=== PATIENT | male | born 1940 | race Caucasian/White ===

== ENCOUNTER 2019-12-01 19:33 | Inpatient (IN) | payer MEDICARE ==
--- NOTE | 2019-12-01 20:09 | ED ---
General Adult HPI - General Chief complaint: Upper Respiratory Infection Stated complaint: coughing up blood Time Seen by Provider: 12/01/19 19:40 Source: patient, EMS Mode of arrival: EMS Limitations: no limitations - History of Present Illness Initial comments: The patient is a 79-year-old male with past medical history of COPD and hyperlipidemia who presents to the emergency department as a transfer for [facility]. He went into their facility after he had coughed up blood at home. States he has no history of similar in the past. He did cough up to quarter size amounts of bright red blood. Evaluation of [facility] demonstrated normal vital signs and a stable hemoglobin. He continued to cough up in total approximately 200 mL of blood and therefore they did recommend transfer to a facility with pulmonology on staff. Patient denies been on any blood thinners. No chest pain or shortness of breath. No lower external swelli ng. Denies a ripping return station his back. Denies epistaxis. No history of blood clotting disorders. Denies fevers or chills. No sputum production. Denies history of tuberculosis or PE. There are no other alleviating, precipitating or modifying factors - Related Data Home Medications Medication Instructions Recorded Confirmed Pravastatin Sodium [Pravachol] 40 mg PO HS 12/02/19 12/04/19 Previous Rx's Medication Instructions Recorded predniSONE [Deltasone] 60 mg PO DAILY #15 tab 12/03/19 Allergies Allergy/AdvReac Type Severity Reaction Status Date / Time No Known Allergies Allergy Verified 12/04/19 10:54 Review of Systems ROS Statement: Those systems with pertinent positive or pertinent negative responses have been documented in the HPI. ROS Other: All systems not noted in ROS Statement are negative. Past Medical History Past Medical History: COPD, Hyperlipidemia History of Any Multi-Drug Resistant Organisms: None Reported Past Surgical History: Joint Replacement, Orthopedic Surgery Additional Past Surgical History / Comment(s): shoulder surgery, back surgery Past Psychological History: No Psychological Hx Reported Smoking Status: Current every day smoker Past Alcohol Use History: Occasional Past Drug Use History: None Reported - Past Family History family Family Medical History: No Reported History General Exam Limitations: no limitations General appearance: alert, in no apparent distress Head exam: Present: atraumatic, normocephalic, normal inspection Eye exam: Present: normal appearance, PERRL, EOMI. Absent: scleral icterus, conjunctival injection, periorbital swelling ENT exam: Present: normal exam, mucous membranes moist Neck exam: Present: normal inspection. Absent: tenderness, meningismus, lymphadenopathy Respiratory exam: Present: normal lung sounds bilaterally. Absent: respiratory distress, wheezes, rales, rhonchi, stridor Cardiovascular Exam: Present: regular rate, normal rhythm, normal heart sounds. Absent: systolic murmur, diastolic murmur, rubs, gallop, clicks GI/Abdominal exam: Present: soft, normal bowel sounds. Absent: distended, tenderness, guarding, rebound, rigid Extremities exam: Present: normal inspection, full ROM, normal capillary refill. Absent: tenderness, pedal edema, joint swelling, calf tenderness Back exam: Present: normal inspection Neurological exam: Present: alert, oriented X3, CN II-XII intact Psychiatric exam: Present: normal affect, normal mood Skin exam: Present: warm, dry, intact, normal color. Absent: rash Course Vital Signs 12/01/19 12/01/19 12/01/19 19:35 20:32 20:45 Temperature 97.4 F L 97.8 F Pulse Rate 72 75 Respiratory 19 20 20 Rate Blood Pressure 140/87 137/88 O2 Sat by Pulse 97 98 Oximetry 12/01/19 21:46 Temperature 98.0 F Pulse Rate 81 Respiratory 16 Rate Blood Pressure 139/89 O2 Sat by Pulse 98 Oximetry EKG Findings - EKG Comments: EKG Findings:: EKG demonstrates a normal sinus rhythm with a ventricular rate of 67. RI interval 166. QRS 76. QTC 443. No acute ST segment elevations or depressions concerning for ischemic changes. Baseline artifact. Medical Decision Making - Medical Decision Making Upon arrival the patient was placed into room 3. A thorough history and physical exam is performed. I did repeat a CBC. hb stable at 17.1. Vitals re mained stable as well. Patient does arrive with an emesis container that only has approximate 5 mL of bright red blood in it. Visualization of the patient's nose and mouth demonstrates no active bleeding. I did recommend admission for pulmonology evaluation for which the patient did agree. I discussed case with Dr. Lutz who accepted admission. Patient was then transferred to the floor in stable condition - Lab Data Result diagrams: 12/03/19 05:43 12/02/19 05:42 Lab Results 12/01/19 Range/Units 20:16 WBC 8.4 (3.8-10.6) k/uL RBC 5.35 (4.30-5.90) m/uL Hgb 17.1 (13.0-17.5) gm/dL Hct 50.3 (39.0-53.0) % MCV 94.0 (80.0-100.0) fL MCH 31.9 (25.0-35.0) pg MCHC 33.9 (31.0-37.0) g/dL RDW 13.5 (11.5-15.5) % Plt Count 237 (150-450) k/uL Neutrophils % 62 % Lymphocytes % 27 % Monocytes % 6 % Eosinophils % 4 % Basophils % 1 % Neutrophils # 5.2 (1.3-7.7) k/uL Lymphocytes # 2.3 (1.0-4.8) k/uL Monocytes # 0.5 (0-1.0) k/uL Eosinophils # 0.3 (0-0.7) k/uL Basophils # 0.1 (0-0.2) k/uL Disposition Clinical Impression: Hemoptysis Disposition: ADMITTED IP TO THIS [facility] Condition: Stable Is patient prescribed a controlled substance at d/c from ED?: No Decision to Admit Reason: Admit from EC Decision Date: 12/01/19 Decision Time: 20:09
[2019-12-01] MEDS ORDERED: NALOXONE 0.4 MG/ML 1 ML VIAL IV PRN (20:23)
[2019-12-01 20:30] LABS: Basophils # (A) 0.1 k/uL (0-0.2); Basophils % (A) 1 %; Eosinophils # (A) 0.3 k/uL (0-0.7); Eosinophils % (A) 4 %; HCT 50.3 % (39.0-53.0); HGB 17.1 gm/dL (13.0-17.5); Lymphocytes # (A) 2.3 k/uL (1.0-4.8); Lymphocytes % (A) 27 %; MCH 31.9 pg (25.0-35.0); MCHC 33.9 g/dL (31.0-37.0); Mean Platelet Volume 9.1; Monocytes # (A) 0.5 k/uL (0-1.0); Monocytes % (A) 6 %; Neutrophils # (A) 5.2 k/uL (1.3-7.7); Neutrophils % (A) 62 %; Platelet Count 237 k/uL (150-450); RBC 5.35 m/uL (4.30-5.90); RDW 13.5 % (11.5-15.5); WBC 8.4 k/uL (3.8-10.6)
[2019-12-01] MEDS: SODIUM CHLORIDE 0.9% 1,000 ML IV SCH (21:37)
[2019-12-02] MEDS ORDERED: IPRATROPIUM-ALBUTEROL 3 ML NEB INHALATION PRN (00:29)
--- NOTE | 2019-12-02 00:40 | P.HPIM ---
History of Present Illness H&P Date: 12/01/19 Chief Complaint: hemoptysis 79 year old male with COPD not on home oxygen patient reports sudden onset of hemoptysis large amount . he reports chronic cough at baseline. he is active smoker, denies any weight loss. denies any fever, chills, chest pain , or SOB. he denies any recent travel or sick contact. denies being on any blood thinners, except for aspirin . denies any GI bleed or epistaxis. denies abd pain , nausea or vomiting denies any history of DVT or bleeding . he got concerned , and went to the ED, CTA done showed no masses or PE patient reports that hhis COPD is stable and he uses an inhaler twice a week as needed. no home oxygen . no contact with anyone with chronic cough , denies any history of TB patient was transferred to our facility from [place] for pulmonary evaluation Review of Systems Pertinent positives as noted in HPI. All other systems were reviewed and are negative Past Medical History Past Medical History: No Reported History, COPD, Hyperlipidemia History of Any Multi-Drug Resistant Organisms: None Reported Past Surgical History: Joint Replacement, Orthopedic Surgery Additional Past Surgical History / Comment(s): shoulder surgery, back surgery Additional Past Anesthesia/Blood Transfusion Reaction / Comment(s): No history Past Psychological History: No Psychological Hx Reported Smoking Status: Current every day smoker Past Alcohol Use History: Occasional Past Drug Use History: None Reported - Past Family History family Family Medical History: No Reported History Medications and Allergies Home Medications Medication Instructions Recorded Confirmed Type Aspirin EC [Ecotrin Low Dose] 81 mg PO HS 12/01/19 12/01/19 History Unknown Cholesterol Medication 1 tab PO 12/01/19 12/01/19 History Allergies Allergy/AdvReac Type Severity Reaction Status Date / Time No Known Allergies Allergy Verified 12/01/19 20:57 Physical Exam Vitals: Vital Signs Temp Pulse Pulse Resp BP BP Pulse Ox 12/01/19 23:09 97.7 F 70 18 168/77 96 12/01/19 22:01 97.7 F 70 19 168/77 96 12/01/19 21:46 98.0 F 81 16 139/89 98 12/01/19 20:45 97.8 F 75 20 137/88 98 12/01/19 20:32 20 12/01/19 19:35 97.4 F L 72 19 140/87 97 Intake and Output 12/01/19 12/01/19 12/02/19 14:59 22:59 06:59 Other: Voiding Method Toilet Weight 92.986 kg Constitutional: No acute distress, conversant, pleasant Eyes: Anicteric sclerae, moist conjunctiva, no lid-lag Pupils equal round reactive to light ENMT: NC/AT Oropharynx clear, no erythema, or exudates Neck: Supple, FROM, no masses, or JVD No carotid bruits No thyromegaly Lungs: Clear to auscultation Clear to percussion Normal respiratory effort, no accessory muscle use Cardiovascular: Heart regular in rate and rhythm, No murmurs, gallops, or rubs No peripheral edema Abdominal: Soft Nontender, no guarding, rebound or rigidity Abdomen moving with respiration Normoactive bowel sounds No hepatomegaly, No splenomegaly No palpable mass No abdominal wall hernia noted Skin: Normal temperature, tone, texture, turgor No induration No subcutaneous nodules No rash, lesions No ulcers Extremities: No digital cyanosis No clubbing Pedal pulses intact and symmetrical Radial pulses intact and symmetrical No calf tenderness Psychiatric: Alert and oriented to person, place and time Appropriate affect fair judgement Neuro Muscles Strength 5/5 in all 4 extremities Sensation to light touch grossly present throughout Cranial nerves II-XII grossly intact No focal sensory deficits Lymphatics: no palpable cervical or supraclavicular , or inguinal lymph nodes Results CBC & Chem 7: 12/01/19 20:16 Thrombosis Risk Factor Assmnt - Choose All That Apply Any of the Below Risk Factors Present?: Yes Each Factor Represents 1 point: Abnormal pulmonary function (COPD) Each Risk Factor Represents 3 Points: Age 75 years or older Other congenital or acquired thrombophilia - If yes, enter type in comment: No Thrombosis Risk Factor Assessment Total Risk Factor Score: 4 Thrombosis Risk Factor Assessment Level: Moderate Risk Assessment and Plan Assessment: 79 year old male smoker with copd, comes in due to sudden onset of hemoptysis and coughing hemoptysis rule out cancer, vs acute bronchitis copd compensated and stable plan breathing treatment as needed symptomatic control hemoglobin stable follow up morning labs pulmonary evaluation CTA of the lung , no PE , no masses PT/INR wnl follow up COVID results CODE STATUS:full code DVT prophylaxis: mechanical Discussed with: Patient, ER, RN Anticipated length of stay > than [address]: home A total of 75 minutes was spent on the care of this complex patient more than 50% of the time was spent in counseling and care coordination.
[2019-12-02] MEDS ORDERED: MELATONIN 3 MG TABLET PO SCH (01:00)
[2019-12-02 06:29] LABS: Basophils # (A) 0.1 k/uL (0-0.2); Basophils % (A) 1 %; Eosinophils # (A) 0.3 k/uL (0-0.7); Eosinophils % (A) 5 %; HCT 43.3 % (39.0-53.0); Lymphocytes # (A) 2.4 k/uL (1.0-4.8); Lymphocytes % (A) 34 %; MCH 30.6 pg (25.0-35.0); MCHC 32.3 g/dL (31.0-37.0); MCV 94.6 fL (80.0-100.0); Mean Platelet Volume 9.4; Monocytes # (A) 0.4 k/uL (0-1.0); Monocytes % (A) 6 %; Neutrophils # (A) 3.7 k/uL (1.3-7.7); Neutrophils % (A) 53 %; Platelet Count 218 k/uL (150-450); RBC 4.57 m/uL (4.30-5.90); RDW 13.4 % (11.5-15.5)
[2019-12-02 06:44] LABS: Potassium 4.2 mmol/L (3.5-5.1)
[2019-12-02] MEDS: NICOTINE 21MG/24HR PATCH TRANSDERM SCH (09:40)
[2019-12-02] MEDS: SODIUM CHLORIDE 0.9% 1,000 ML IV SCH ×2 (09:42→23:21)
[2019-12-02] MEDS: IPRATROPIUM-ALBUTEROL 3 ML NEB INHALATION SCH ×4 (10:59→23:20)
[2019-12-02] MEDS: methylPREDNISolone SOD SUCCI 125 MG/2 ML VIAL IV SCH ×3 (12:02→23:15)
--- NOTE | 2019-12-02 12:58 | P.CNPUL ---
History of Present Illness Consult date: 12/02/19 Chief complaint: hemoptysis History of present illness: This is a 79-year-old male patient came into the emergency department as a transfer for evaluation of hemoptysis. The patient states that he was doing well and he was sitting outside and relaxing with his when all of a sudden he started having the urge to cough and he started coughing out bright red blood. The patient stated that this happened around 3-4 times at home and this is the first episode where he ever had hemoptysis. He has never had it before. He denies having any sensation of postnasal drainage. He did not have any epistaxis. He did not have any inhalational injury. He did not have any fever chills or night sweats. No exposure to covid19 infection. He stated that he was having episodes where significant amount of bright red blood was being coughed out and each time he coughed up blood was about the size of a quarter. He is known to be a smoker. He is known to have COPD and continues to smoke cigarettes. He is a retired trailer truck driver. No reported chest pain. No reported trauma. No history of any prolonged immobilization. No previous history of DVT or pulmonary management. The patient underwent a computed tomography scan of the chest that was done and [facility] and the CAT scan showed no evidence of any pulmonary embolism. No evidence of any lung masses. This was consistent with COPD. This morning, the patient is still coughing up some bright red blood mixed with mucus. He was seen by the hospitalist and the patient was given a combination of breathing treatments and steroids. He is sitting up on a chair. He has no specific complaints. No pleurisy. He takes aspirin. No intake of any other antiplatelet agents or anticoagulants. No coagulopathy. No previous history of bleeding. Review of Systems Constitutional: Denies chills, Denies fever Eyes: denies as per HPI, denies blurred vision, denies bulging eye, denies decreased vision, denies diplopia, denies discharge, denies dry eye, denies irritation, denies itching, denies pain, denies photophobia, denies loss of peripheral vision, denies loss of vision, denies tunnel vision/blind spots Ears: deny: decreased hearing, ear discharge, earache, tinnitus Ears, nose, mouth and throat: Denies headache, Denies sore throat Breasts: absent: as per HPI, gynecomastia Cardiovascular: Reports dyspnea on exertion Respiratory: Reports dyspnea, Reports hemoptysis Gastrointestinal: Reports as per HPI Genitourinary: Reports as per HPI Musculoskeletal: Reports as per HPI Musculoskeletal: absent: ankle pain, ankle stiffness, ankle swelling Integumentary: Reports as per HPI Neurological: Reports as per HPI Psychiatric: Reports as per HPI Endocrine: Reports as per HPI Hematologic/Lymphatic: Reports as per HPI Allergic/Immunologic: Reports as per HPI Past Medical History Past Medical History: No Reported History, COPD, Hyperlipidemia History of Any Multi-Drug Resistant Organisms: None Reported Past Surgical History: Joint Replacement, Orthopedic Surgery Additional Past Surgical History / Comment(s): shoulder surgery, back surgery Additional Past Anesthesia/Blood Transfusion Reaction / Comment(s): No history Past Psychological History: No Psychological Hx Reported Smoking Status: Current every day smoker Past Alcohol Use History: Occasional Past Drug Use History: None Reported - Past Family History family Family Medical History: No Reported History Medications and Allergies Home Medications Medication Instructions Recorded Confirmed Type Aspirin EC [Ecotrin Low Dose] 81 mg PO HS 12/01/19 12/02/19 History Pravastatin Sodium [Pravachol] 40 mg PO HS 12/02/19 12/02/19 History Allergies Allergy/AdvReac Type Severity Reaction Status Date / Time No Known Allergies Allergy Verified 12/02/19 09:27 Physical Exam Vitals: Vital Signs Temp Pulse Pulse Resp BP BP Pulse Ox 12/02/19 03:54 97.6 F 66 16 122/61 94 L 12/01/19 23:09 97.7 F 70 18 168/77 96 12/01/19 22:01 97.7 F 70 19 168/77 96 12/01/19 21:46 98.0 F 81 16 139/89 98 12/01/19 20:45 97.8 F 75 20 137/88 98 12/01/19 20:32 20 12/01/19 19:35 97.4 F L 72 19 140/87 97 Intake and Output 12/01/19 12/02/19 12/02/19 22:59 06:59 14:59 Other: Voiding Method Toilet Weight 92.986 kg 88.8 kg The patient appeared well nourished and normally developed. Vital signs as documented. Head exam is unremarkable. No scleral icterus or corneal arcus noted. Neck is without jugular venous distension, thyromegaly, or carotid bruits. Carotid upstrokes are brisk bilaterally. Lungs are diminished bilaterally along with some few scattered expiratory wheezes. Otherwise breath sounds are equal and symmetrical bilaterally. Cardiac exam reveals the PMI to be normally sized and situated. Rhythm is regular. First and second heart sounds normal. No murmurs, rubs or gallops. Abdominal exam reveals normal bowel sounds, no masses, no organomegaly and no aortic enlargement. Extremities are nonedematous and both femoral and pedal pulses are normal.Examination of the skin revealed no evidence of significant rashes, suspicious appearing nevi or other concerning lesions. Neurologically the patient is awake and alert and there is no focal neurological deficits. Results - Laboratory Findings CBC and BMP: 12/02/19 05:42 12/02/19 05:42 Abnormal lab findings: Abnormal Labs 12/02/19 05:42 Chloride 110 H Carbon Dioxide 21 L - Diagnostic Findings Chest x-ray: image reviewed CT scan - chest: image reviewed Assessment and Plan Plan: 1 acute hemoptysis, currently under investigation. Patient is known to have COPD. No abnormal findings on the computed tomography scan of the chest and the patient underwent a CT angiogram that was done [facility]. No lung masses with identified. No bronchiectasis. No pulmonary embolism. No pneumonias. As such, the exact source for hemoptysis is not clear. Consider underlying tracheal bronchitis. 2 COPD 3 chronic dyspnea, related to COPD 4 chronic smoking 5 hyperlipidemia Plan We'll set up the patient for a bronchoscopy for an upper and lower airways inspection based on the significant amount of hemoptysis that the patient had. The source of the hemoptysis is not clear as the patient's computed tomography scan of the chest that was done utilizing a angiographic protocol was negative. A covid 19 evaluation needs to be done prior to this bronchoscopy. Continue bronchodilators. Hold aspirin for now. Continue steroids. The coagulation profile has been within normal limits. Hemoglobin is at 14.0. Rest of the blood work and electrodes are all within normal limits. We'll follow.
[2019-12-02] MEDS ORDERED: ACETAMINOPHEN TAB 325 MG TAB PO PRN (16:16)
[2019-12-02] MEDS ORDERED: MELATONIN 5 MG TABLET PO PRN (16:16)
[2019-12-02] MEDS ORDERED: ONDANSETRON 4 MG/2 ML VIAL IVP PRN (16:16)
--- NOTE | 2019-12-02 16:42 | P.PN ---
Subjective Progress Note Date: 12/02/19 (delayed charting seen at 1105) Principal diagnosis: Hemoptysis Patient is a 79-year-old male with COPD, dyslipidemia, tobacco abuse who initially presented to an out side emergency department secondary to hemoptysis. There he underwent a CT of the chest which did not show any signs of pulmonary embolism or tumor. He denied being on any blood thinners, he has not had any sick contact. He was sent here for pulmonary evaluation. He was seen by Dr. Shanthi Manley and who recommended bronchoscopy for upper and lower airway inspection. Patient seen and examined at bedside. He continues to have a cough productive of bright red sputum. He denies any nausea, vomiting, lightheadedness, or chest pain. He denies any recent upper respiratory type illness. He states he has been wheezing more than baseline. Objective - Vital Signs Vital signs: Vital Signs Temp 97.2 F L 12/02/19 08:30 Pulse 57 L 12/02/19 12:20 Resp 17 12/02/19 12:20 BP 136/69 12/02/19 12:20 Pulse Ox 97 12/02/19 12:20 Intake & Output 12/01/19 12/02/19 12/02/19 18:59 06:59 18:59 Weight 88.8 kg Other: Voiding Method Toilet - Exam General: non toxic, no distress, appears at stated age Derm: warm, dry Head: atraumatic, normocephalic, symmetric Eyes: EOMI, no lid lag, anicteric sclera Mouth: no lip lesion, mucus membranes moist Cardiovascular: S1S2 reg, no murmur, positive posterior tibial pulse bilateral, Lungs: Faint wheezing bilateral bases, no rhonchi, no rales , no accessory muscle use Abdominal: soft, nontender to palpation, no guarding, no appreciable organomegaly Ext: no gross muscle atrophy, no edema, no contractures Neuro: CN II-XI grossly intact, no focal neuro deficits Psych: Alert, oriented, appropriate affect - Labs CBC & Chem 7: 12/02/19 05:42 12/02/19 05:42 Labs: Abnormal Lab Results - Last 24 Hours (Table) 12/02/19 Range/Units 05:42 Chloride 110 H (98-107) mmol/L Carbon Dioxide 21 L (22-30) mmol/L Assessment and Plan Assessment: Hemoptysis with underlying COPD and tobacco abuse -Pulmonary recommendations appreciated: Likely bronchoscopy in a.m. if covic 19 is negative, steroids, bronchodilators -Hold aspirin -CTA chest negative -Nicotine replacement -Cessation - COVID-19 test pending Dyslipidemia -Statin DVT prophylaxis:SCDs Discussed with: Patient, nursing, Sudha Anticipated discharge: 1-[address]: home A total of 35 minutes was spent on the care of this complex patient more than 50% of the time was spent in counseling and care coordination.
[2019-12-03] MEDS: IPRATROPIUM-ALBUTEROL 3 ML NEB INHALATION SCH ×4 (00:09→15:42)
[2019-12-03] MEDS: methylPREDNISolone SOD SUCCI 125 MG/2 ML VIAL IV SCH ×2 (05:48→12:06)
[2019-12-03 06:22] LABS: HGB 13.9 gm/dL (13.0-17.5); MCH 31.3 pg (25.0-35.0); MCHC 32.4 g/dL (31.0-37.0); MCV 96.8 fL (80.0-100.0); Platelet Count 233 k/uL (150-450); RBC 4.44 m/uL (4.30-5.90); RDW 13.6 % (11.5-15.5)
[2019-12-03 06:37] LABS: Partial Thromboplastin Time 22.2 sec (22.0-30.0); Prothrombin Time 10.2 sec (9.0-12.0)
[2019-12-03] MEDS: NICOTINE 21MG/24HR PATCH TRANSDERM SCH (08:58)
[2019-12-03 09:17] VITALS: RESP 20
[2019-12-03 12:11] VITALS: BP 101/56; PULSE 87; TEMP 97.3
--- NOTE | 2019-12-03 12:27 | P.PN ---
Subjective Progress Note Date: 12/03/19 Principal diagnosis: Hemoptysis This is a 79-year-old male patient came into the emergency department as a transfer for evaluation of hemoptysis. The patient states that he was doing well and he was sitting outside and relaxing with his when all of a sudden he started having the urge to cough and he started coughing out bright red blood. The patient stated that this happened around 3-4 times at home and this is the first episode where he ever had hemoptysis. He has never had it before. He denies having any sensation of postnasal drainage. He did not have any epis taxis. He did not have any inhalational injury. He did not have any fever chills or night sweats. No exposure to covid19 infection. He stated that he was having episodes where significant amount of bright red blood was being coughed out and each time he coughed up blood was about the size of a quarter. He is known to be a smoker. He is known to have COPD and continues to smoke cigarettes. He is a retired tier lift truck operator. No reported chest pain. No reported trauma. No history of any prolonged immobilization. No previous history of DVT or pulmonary management. The patient underwent a computed tomography scan of the chest that was done and [facility] and the CAT scan showed no evidence of any pulmonary embolism. No evidence of any lung masses. This was consistent with COPD. This morning, the patient is still coughing up some bright red blood mixed with mucus. He was seen by the hospitalist and the patient was given a combination of breathing treatments and steroids. He is sitting up on a chair. He has no specific complaints. No pleurisy. He takes aspirin. No intake of any other antiplatelet agents or anticoagulants. No coagulopathy. No previous history of bleeding. On 12/03/2019 patient seen in follow-up on selective care unit, his hemoptysis is improving, decreasing in amount. Vital signs are stable, room air pulse ox is 98%, no fever or chills, breathing improving, his INR was 1.0, PTT was 22.2, with mental, is 12.0 on today's labs, hemoglobin is 13.9. His coronavirus PCR did not come back in time for his scheduled bronchoscopy today, and patient wants to go home, we will reschedule the patient's bronchoscopy for tomorrow at 12:00. Patient is agreeable with the plan. No other acute events overnight, patient is on room air, tolerating ambulation Objective - Vital Signs Vital signs: Vital Signs Temp 97.3 F L 12/03/19 12:00 Pulse 87 12/03/19 12:00 Resp 20 12/03/19 12:00 BP 101/56 12/03/19 12:00 Pulse Ox 98 12/03/19 12:00 Intake & Output 12/02/19 12/03/19 12/03/19 18:59 06:59 18:59 Intake Total 1545 0 Output Total 2300 Balance -755 0 Weight 88.7 kg Intake: Intake, IV Titration 525 Amount Sodium Chloride 0.9% 1, 525 000 ml @ 75 mls/hr IV . [id number] [facility] Rx#:[id number] Oral 1020 0 Output: Urine 2300 Other: Voiding Method Toilet Toilet - Exam GENERAL EXAM: Alert, very pleasant, 79-year-old white male, on room air with a pulse ox of 98% comfortable in no apparent distress. HEAD: Normocephalic/atraumatic. EYES: Normal reaction of pupils, equal size. Conjunctiva pink, sclera white. NOSE: Clear with pink turbinates. THROAT: No erythema or exudates. NECK: No masses, no JVD, no thyroid enlargement, no adenopathy. CHEST: No chest wall deformity. Symmetrical expansion. LUNGS: Equal air entry with no crackles, wheeze, rhonchi or dullness. CVS: Regular rate and rhythm, normal S1 and S2, no gallops, no murmurs, no rubs ABDOMEN: Soft, nontender. No hepatosplenomegaly, normal bowel sounds, no guarding or rigidity. EXTREMITIES: No clubbing, no edema, no cyanosis, 2+ pulses and upper and lower extremities. MUSCULOSKELETAL: Muscle strength and tone normal. SPINE: No scoliosis or deformity SKIN: No rashes CENTRAL NERVOUS SYSTEM: Alert and oriented -3. No focal deficits, tone is normal in all 4 extremities. PSYCHIATRIC: Alert and oriented -3. Appropriate affect. Intact judgment and insight. - Labs CBC & Chem 7: 12/03/19 05:43 12/02/19 05:42 Labs: Abnormal Lab Results - Last 24 Hours (Table) 12/03/19 Range/Units 05:43 WBC 12.0 H (3.8-10.6) k/uL Assessment and Plan Plan: Assessment: 1 acute hemoptysis, currently under investigation. Patient is known to have COPD. No abnormal findings on the computed tomography scan of the chest and the patient underwent a CT angiogram that was done [facility]. No lung masses with identified. No bronchiectasis. No pulmonary embolism. No pneumonias. As such, the exact source for hemoptysis is not clear. Consider underlying tracheal bronchitis. 2 COPD 3 chronic dyspnea, related to COPD 4 chronic smoking 5 hyperlipidemia Plan: Patient's COVID testing did not come back in time for scheduled bronchoscopy for today, patient wants to go home. We rescheduled patient's bronchoscopy for tomorrow at 12:00, and patient is agreeable to come in for an outpatient bronchoscopy. His Covid 19 testing did come back negative I performed a history & physical examination of the patient and discussed their management with my nurse practitioner, Sudha Maza. I reviewed the nurse practitioner's note and agree with the documented findings and plan of care. Lung sounds are positive for diminished breath sounds. The findings and the impression was discussed with the patient. I attest to the documentation by the nurse practitioner. Time with Patient: Less than 30
--- NOTE | 2019-12-03 12:49 | P.DS ---
Providers Date of admission: 12/01/19 20:23 Expected date of discharge: 12/03/19 Attending physician: Robert Gooden MD Consults: 12/01/19 20:24 Consult Physician Urgent Consulting Provider: Jv Bates Reason/Comments: acute hemoptysis Do you want consulting provider notified?: Yes Primary care physician: Martín Sampson [facility] Course: Discharge Diagnosis: Hemoptysis AE of COPD Tobacco abuse HLD Hospital Course: Patient is a 79-year-old male with COPD, dyslipidemia, tobacco abuse who initially presented to an out side emergency department secondary to hemoptysis. There he underwent a CT of the chest which did not show any signs of pulmonary embolism or tumor. He denied being on any blood thinners, he has not had any sick contact. He was sent here for pulmonary evaluation. He was seen by Dr. Noguera and who recommended bronchoscopy for upper and lower airway inspection. His hemoptysis improved. His blood testing was not returned yet on 12/02. He was determined stable for discharge home. Arrangements were made for him to have an outpatient bronchoscopy on 12/04/2019 at noon. He'll complete a five-day course of Solu-Medrol. He will continue with bronchodilators 4 times daily. He'll also follow-up with Dr. Noguera the outpatient clinic. Bronchoscopy at noon tomorrow 12/04/2019 Patient seen and examined at bedside. No chest pain, SOB, Wheezing is better, hemoptysis is improving. Vital signs reviewed and stable. General: non toxic, no distress, appears at stated age Derm: warm, dry Head: atraumatic, normocephalic, symmetric Eyes: EOMI, no lid lag, anicteric sclera Mouth: no lip lesion, mucus membranes moist Cardiovascular: S1S2 reg, no murmur, positive posterior tibial pulse bilateral, Lungs: Improved air movement from yesterday, wheezing resolved , no accessory muscle use Abdominal: soft, nontender to palpation, no guarding, no appreciable organomegaly Ext: no gross muscle atrophy, no edema, no contractures Neuro: CN II-XI grossly intact, no focal neuro deficits Psych: Alert, oriented, appropriate affect A total of 35 minutes of time were spent preparing this complex discharge summary . Patient Condition at Discharge: Stable Plan - Discharge Summary Discharge Rx Participant: No New Discharge Prescriptions: New predniSONE [Deltasone] 60 mg PO DAILY #15 tab Continue Pravastatin Sodium [Pravachol] 40 mg PO HS Discontinued Aspirin EC [Ecotrin Low Dose] 81 mg PO HS Discharge Medication List Pravastatin Sodium [Pravachol] 40 mg PO HS 12/02/19 [History] predniSONE [Deltasone] 60 mg PO DAILY #15 tab 12/03/19 [Rx] Follow up Appointment(s)/Referral(s): Martín Sampson MD [Primary Care Provider] - 1-2 days Jonel Noguera MD [STAFF PHYSICIAN] - 1 Week Activity/Diet/Wound Care/Special Instructions: Out patient bronchoscopy at 1200 on 12/03. Nothing to eat or drink after midnight. No Aspirin until after bronch. Discharge Disposition: HOME SELF-CARE
== END 2019-12-03 15:49 | disposition home or self-care (01) | DRG 191 ==
LOC: SUPCPDRO 19:33 → EC 19:33 → 3SCARD 20:23
PROVIDERS: ADMIT Internal Medicine; ATTEND Internal Medicine
DX: J44.1 Chronic obstructive pulmonary disease with (acute) exacerbation (principal); R04.2 Hemoptysis; F17.210 Nicotine dependence, cigarettes, uncomplicated; E78.5 Hyperlipidemia, unspecified; Z79.82 Long term (current) use of aspirin; Z79.899 Other long term (current) drug therapy; Z20.828 Contact with and (suspected) exposure to other viral communicable diseases
CPT/HCPCS: 36415; 80048; 85025; 85027; 85610; 85730; 93005; 94640; 99285

== ENCOUNTER 2019-12-04 10:32 | Day surgery (SDC) | payer MEDICARE ==
[2019-12-04 11:14] VITALS: TEMP 97.2
[2019-12-04] MEDS ORDERED: LACTATED RINGERS 1,000 ML IV ONE (11:14)
[2019-12-04] MEDS ORDERED: LIDOCAINE VISCOUS 2% 15 ML CUP MUCOUS MEM ONE (11:15)
[2019-12-04] MEDS ORDERED: fentaNYL (PF) 50 MCG/ML 2 ML AMP ONE (12:29)
[2019-12-04] MEDS ORDERED: PROPOFOL 10 MG/ML 20 ML VIAL IV ONE (12:29)
[2019-12-04] MEDS ORDERED: KETAMINE 10 MG/ML 20 ML VIAL ONE (12:29)
[2019-12-04] MEDS ORDERED: GLYCOPYRROLATE 0.2 MG/ML 2 ML VIAL ONE (12:29)
[2019-12-04] MEDS ORDERED: MIDAZOLAM 2 MG/2 ML VIAL ONE (12:29)
[2019-12-04] MEDS ORDERED: LIDOCAINE 2% INJ 20 MG/ML INTRATRACH ONE (12:44)
[2019-12-04 12:54] VITALS: RESP 18
--- NOTE | 2019-12-04 12:55 | P.PCN ---
Date of Procedure: 12/04/19 Preoperative Diagnosis: hemoptysis Postoperative Diagnosis: 1 old retained bloody secretions within the airways 2 Diffuse tracheobronchitis, most on the right lower lobe 3 No evidence of an endobronchial tumors 4 Normal upper airway structures including vocal cords, pharynx and larynx. Anesthesia: MAC, local Surgeon: Jonel Noguera Estimated Blood Loss (ml): 0 Pathology: other Condition: stable Disposition: same day Operative Findings: This is a flexible bronchoscopy that was done for an airway inspection including upper and lower airways for evaluation of hemoptysis. The patient was hospitalized earlier for hemoptysis and the patient was discharged home to come back to undergo this procedure. Covid 19 evaluation was negative. The patient underwent the procedure the endoscopy suite. After achieving adequate sedation, the flexible bronchoscope was easily passed through the right nostril was advanced into the nasal pharynx, oropharynx and later on to the larynx. Upper airway inspection was done. The pharyngeal wall was intact and within normal limits. There was some old retained bloody secretions within the pharyngeal wall that was suctioned out. The epiglottis was identified and was quite vascular. No lesions or tumors identified. The vallecula, arytenoids were then inspected. Arytenoids were slightly swollen. Nevertheless, the vocal cords had normal function and mobility. There was normal abduction and adduction. A total of 2 mL of 1% lidocaine was applied to the vocal cords and following that the bronchoscope was advanced into the upper trachea and examination of the tracheal bronchial tree was done. There was significant amount of respiratory secretions that was somewhat thick and at times bloody. Some older retained dark blood was visualized within the tracheal wall mainly over the membranous segment. Some amount of secretions were noted in the b ilateral mainstem bronchi and was more copious in the right mainstem bronchus and most on the right lower lobe bronchus. Seborrheic it was suctioning was done. Clots were removed. Airway inspection was completed. Trachea was within normal limits. Bilateral mainstem bronchi and then right upper lobe bronchus bronchus intermedius and right middle lobe bronchus and right lower lobe bronchus and the left upper and left lower lobe bronchi were inspected. There was some mucosal emphysematous changes made in lower lobes. Nevertheless there was no endobronchial lesion or tumors or foreign bodies identified. The patient underwent therapeutic it was suctioning and following that I performed a bronchial alveolar lavage of the right lower lobe with a total of 60 mL of fluid was infused and 20 mL of bloody aspirate was obtained back. The samples will be sent for microbial cultures and analysis. At the completion of the procedure, the patient did well. All of the secretions were removed. As the bronchoscope was being retracted, the airways were reviewed more thoroughly and there was no endobronchial or endotracheal or upper airway tumors identified. Bronchus was removed. My postoperative diagnoses is smoking-related airway injury versus infectious tracheobronchitis with secondary bleed. Lavage was obtained. Patient will be discharged home.
[2019-12-04 13:10] VITALS: BP 145/74; PULSE 79
== END 2019-12-04 13:34 | disposition home or self-care (01) ==
LOC: ORWHC2ENDO 10:32
PROVIDERS: ATTEND Internal Medicine Critical Care Medicine
DX: R04.2 Hemoptysis (principal); J40 Bronchitis, not specified as acute or chronic
CPT/HCPCS: 31624; 87798 ×3; 87496; 87498; 87529; 87252; 87502; 87634; 87070; 87205; 87116; 87102; 87206; J2001; J2250; J3010; J2704